=== PATIENT | male | born 1935 ===

== ENCOUNTER 2022-07-02 14:01 | Outpatient (CLI) | payer OTHER ==
[~2022-07-02 14:01] MED LIST: ASA 81MG CHEW. PO; ASA81 MG; Avapro PO; BENICAR40 MG; COUMADIN1 MG PO; Coreg PO; Lipitor 40MG PO; PLAVIX 75MG PO; PLAVIX75 MG; POM (MEDICAMENTO EN PISO) PO
== END 2022-07-02 14:16 | disposition home or self-care (01) ==
LOC: PPH VACUNA 14:01
PROVIDERS: ATTEND Emergency Medicine Pediatric Emergency Medicine
DX: Z23 Encounter for immunization (principal)